=== PATIENT | male | born 1975 | race Caucasian/White ===

== ENCOUNTER 2022-10-08 00:40 | Day surgery (SDC) | payer BC, SELFPAY ==
[2022-09-30 13:51] VITALS: BMI 30.1
[2022-10-08 11:20] VITALS: BP 113/71; PULSE 77; RESP 20; TEMP 36.6; O2SAT 98; BMI 30.2
[2022-10-08] MEDS: LACTATED RINGERS 1,000 ML 150 ML IV CONT (11:22)
--- NOTE | 2022-10-08 11:43 | P.PNAN_ITS ---
Anes - Initial Pre Proc Eval Procedure: Operation Date: 10/08/22 12:30 Proposed Procedures p Screening Colonoscopy - Chance Saldivar MD Date/Time: 10/08/22 11:43 Surgeon: Chance Saldivar MD Pre Op Diagnosis: neoplasm screening Patient Data Age: 47 Gender: M Height: 1.8 m Weight: 98.2 kg Last Vital Signs Temp 97.9 F 10/08/22 11:20 Pulse 77 10/08/22 11:20 Resp 20 10/08/22 11:20 BP 113/71 10/08/22 11:20 Pulse Ox 98 10/08/22 11:20 O2 Del Method Room Air 10/08/22 11:20 Allergies Allergy/AdvReac Type Severity Reaction Status Date / Time No Known Allergies Allergy Verified 10/08/22 11:19 Home Medications Medication Instructions Recorded Confirmed Type calcipotriene 0.005 % topical cream applic topical 09/30/22 History clobetasol 0.05 % topical cream topical 09/30/22 History metronidazole 0.75 % topical cream applic topical 09/30/22 History triamcinolone acetonide 0.1 % applic topical 09/30/22 History topical cream Patient hx anesthesia problems: none Family hx anesthesia problems: none Results Review: All pre-operative results and documents have been reviewed as part of the pre- operative evaluation. [facility] Social History Social History Alcohol intake: current Drinks per week: 6 Substance use type: other Other substance usage details: gumletyes Spiritual care concerns: No Anes - Eval Final PreProcedure Day of Procedure 10/08/22 11:43 Patient weight: obese Heart: regular rate and rhythm Lungs: clear to auscultation Airway: Mallampati scale class II Neurological: alert and oriented Last oral intake: >/= 8 hours ASA classification: II Emergent: no Anesthetic plan: proceed Anesthesia type and monitoring: general GIVS and standard monitoring Results Review: All pre-operative results and documents have been reviewed as part of the pre- operative evaluation. Informed Consent: The patient's anesthetic plan and its attendant risks and benefits were discussed with the patient/family/POA. Questions were solicited and answers provided to the satisfaction of the patient/family/POA.
--- NOTE | 2022-10-08 11:52 | P.HP_ITS ---
History of Present Illness History of Present Illness Consent: Risks, benefits, and alternatives have been discussed and questions answered. Patient agrees to proceed with procedure. Chief complaint: neoplasm screening Narrative: Fidel Sifuentes is a 47 year old male Referred for colon cancer screening. Review of Systems Review of Systems: All systems reviewed & are unremarkable except as noted in HPI and below [facility] Social History Social History Alcohol intake: current Drinks per week: 6 Substance use type: other Other substance usage details: gummies Spiritual care concerns: No Meds Home Medications and Allergies Home Medications Medication Instructions Recorded Confirmed Type calcipotriene 0.005 % topical cream applic topical 09/30/22 History clobetasol 0.05 % topical cream topical 09/30/22 History metronidazole 0.75 % topical cream applic topical 09/30/22 History triamcinolone acetonide 0.1 % applic topical 09/30/22 History topical cream Allergies Allergy/AdvReac Type Severity Reaction Status Date / Time No Known Allergies Allergy Verified 10/08/22 11:19 Vital Signs Vital Signs - 24 hr 10/08/22 11:20 Temperature 36.6 C Pulse Rate 77 Respiratory Rate 20 Blood Pressure 113/71 Pulse Oximetry 98 Oxygen Delivery Room Air Exam Const: General: alert Orientation/consciousness: patient oriented x3 Resp: Auscultation: clear to auscultation bilaterally Cardio: Rhythm: regular rhythm GI: GI Palp: Yes Soft to palpation and No Tenderness to palpation present (GI) Neuro: General: patient oriented x3 Assessment and Plan Assessment and plan (1) Colon cancer screening: Code(s): Z12.11 - Encounter for screening for malignant neoplasm of colon Status: Acute Assessment and Plan: Colonoscopy with possible biopsy or polypectomy or cautery or injection of substances.
[2022-10-08 12:22] VITALS: BP 105/65; PULSE 81; RESP 21; O2SAT 96
[2022-10-08 12:32] VITALS: BP 111/85; PULSE 79; RESP 24; O2SAT 97
[2022-10-08 12:42] VITALS: BP 127/87; PULSE 72; RESP 23; O2SAT 99
== END 2022-10-08 12:50 | disposition home or self-care (01) ==
PROVIDERS: PCP Emergency Medicine; Visit Provider Internal Medicine Gastroenterology
PROC: 0DJD8ZZ Inspection of Lower Intestinal Tract, Via Natural or Artificial Opening Endoscopic (ICD-10-PCS; CPT 45378; principal; 2022-10-08 12:30)
DX: Z12.11 Encounter for screening for malignant neoplasm of colon (principal); D12.8 Benign neoplasm of rectum
CPT/HCPCS: 45380; 88305; J2704; J7120